=== PATIENT | male | born 1955 | race Caucasian/White ===

== ENCOUNTER 2021-09-18 23:45 | Emergency (ER) | payer OTHER ==
[2021-09-19 00:56] LABS: Hemoglobin 11.9 g/dL (13.5-17.5); Mean Corpuscular HGB CONC 33.1 g/dL (32.0-36.0); Mean Corpuscular Hemoglobin 28.2 pg (27.0-33.0); Mean Corpuscular Volume 85.3 fl (81.2-95.1); Mean Platelet Volume 11.1 fl (7.4-10.4); Platelet Count 369 10x3/uL (150-450); RBC Distribution Width 14.5 % (11.5-14.5); Red Blood Cell (RBC) Count 4.22 10x6/uL (4.32-5.72); White Blood Cell (WBC) Count 11.5 10x3/uL (3.5-10.5)
[2021-09-19 00:57] LABS: MDiff Complete? YES; Manual Diff?? YES
[2021-09-19 01:08] LABS: ALT (SGPT) 10 U/L (8-55); AST (SGOT) 13 U/L (5-34); Albumin 3.8 g/dL (3.4-4.8); Alkaline Phosphatase 53 U/L (40-110); Anion Gap 17 mmol/L (10-20); BUN (Urea Nitrogen) 9 mg/dL (8.4-25.7); Bilirubin, Total 0.7 mg/dL (0.2-1.2); Calc. Creatinine Clearance 0 mL/min (70-130); Calcium 9.6 mg/dL (7.8-10.44); Carbon Dioxide 22 mmol/L (23-31); Chloride 96 mmol/L (98-107); Globulin 3.6 g/dL (2.4-3.5); Glucose 97 mg/dL (80-115); Potassium 4.2 mmol/L (3.5-5.1); Protein, Total 7.4 g/dL (5.8-8.1); Sodium 131 mmol/L (136-145)
[2021-09-19 01:24] LABS: SARS-CoV-2 NAA Rapid Test Not Detected (NotDetected)
[2021-09-19 01:30] LABS: Eosinophils 2 % (0-10); Lymphocytes 7 % (21-51); Monocytes 21 % (0-10); Neutrophil 70 % (42-75)
[2021-09-19 01:31] LABS: Platelet Morphology Comment Appears Adequate
[2021-09-19 01:32] LABS: RBC Morphology Normal
== END 2021-09-19 08:33 | disposition short-term general hospital (02) ==
LOC: EEVIPCON 23:45 → CSHERS 23:45
DX: J90 Pleural effusion, not elsewhere classified (principal); Z20.822 Contact with and (suspected) exposure to COVID-19; Z79.899 Other long term (current) drug therapy; I10 Essential (primary) hypertension; J44.9 Chronic obstructive pulmonary disease, unspecified
CPT/HCPCS: 71045; 71260; 80053; 83605; 83880; 84484; 85025; 93005; U0002